=== PATIENT | female | born 1985 | race Asian ===

== ENCOUNTER → 2016-04-17 | Outpatient (CLI) | payer BC ==
[~2016-04-17] MED LIST: PRENTAB26 PO
== END | disposition home or self-care (01) ==
LOC: C.LABSPEC 16:16
PROVIDERS: ATTEND Obstetrics & Gynecology
DX: Z34.03 Encounter for supervision of normal first pregnancy, third trimester (principal)

== ENCOUNTER 2016-05-20 19:55 | Inpatient (IN) | payer BC ==
[~2016-05-20] VITALS: Ht 162.6 cm; Wt 69.0 kg
[2016-05-20 21:34] VITALS: BMI 23.4
[2016-05-20] MEDS ORDERED: PRENTAB26 PO (21:37)
[2016-05-20] MEDS ORDERED: LACTATED RINGER'S 1000ML 1,000 ML IV PRN (23:29)
[2016-05-20] MEDS ORDERED: FENTANYL 2MCG/ML ROPIV 1.25MG/ML 100ML BAG EPI ONE (23:41)
[2016-05-20] MEDS ORDERED: BUPIVACAINE 0.25% 30 ML VIAL ONE (23:41)
[2016-05-20] MEDS ORDERED: EpHEDrine SULFATE INJ 50 MG/ML AMP ONE (23:41)
[2016-05-20] MEDS ORDERED: FENTANYL CITRATE INJ 50 MCG/1 ML 2 ML VIAL ONE (23:42)
[2016-05-20 23:52] LABS: HEMATOCRIT 36.5 % (37-47); MEAN CELL VOLUME 93.1 fL (80-100); MEAN CORPUSCULAR HEMOGLOBIN 32.7 pg (25-34); MEAN CORPUSCULAR HGB CONC 35.1 g/dl (32-36); MEAN PLATELET VOLUME 9.1 fL (7.4-10.4); PLATELET COUNT 165 K/uL (130-400); RED BLOOD COUNT 3.92 M/uL (4.2-5.4); WHITE BLOOD COUNT 8.63 K/uL (4.8-10.8)
[2016-05-21] MEDS ORDERED: LACTATED RINGER'S 1000ML 500 ML IV PRN ×2 (00:56→10:22)
[2016-05-21] MEDS ORDERED: NALOXONE HCL INJ 1 MG in SODIUM CHLORIDE 0.9% 1000ML 1,000 ML IV PRN (00:56)
[2016-05-21] MEDS ORDERED: ONDANSETRON INJ 2 MG/ML 2 ML VIAL IV PRN (01:00)
[2016-05-21] MEDS ORDERED: EpHEDrine SULFATE INJ 50 MG/ML AMP IV PRN (01:00)
[2016-05-21] MEDS ORDERED: DiphenhydrAMINE HCL 50 MG/ML VIAL IV PRN (01:00)
[2016-05-21] MEDS ORDERED: NALBUPHINE HCL INJ 10 MG/ML AMP IV PRN (01:00)
[2016-05-21] MEDS ORDERED: NALOXONE HCL INJ 0.4 MG/1 ML VIAL/CARP IV PRN (01:00)
[2016-05-21 02:53] VITALS: Ht 162.6 cm; Wt 69.0 kg
[2016-05-21] MEDS: LACTATED RINGER'S 1000ML 1,000 ML IV SCH ×2 (05:01→10:28)
[2016-05-21] MEDS: FENTANYL 2MCG/ML ROPIV 1.25MG/ML 100ML BAG EPI PRN ×2 (07:09→08:44)
[2016-05-21] MEDS ORDERED: OXYTOCIN 30 UNITS/500ML NSS IV ONE (07:41)
[2016-05-21] MEDS ORDERED: OXYTOCIN 30 UNITS/500ML NSS IV PRN ×2 (10:30→13:45)
[2016-05-21] MEDS ORDERED: SUPERCREAM 0.870 % 15GM JAR EXT PRN (13:45)
[2016-05-21] MEDS ORDERED: ACETAMINOPHEN/CODEINE 300/30MG TAB PO PRN ×2 (13:45)
[2016-05-21] MEDS ORDERED: ACETAMINOPHEN 325 MG TAB PO PRN (13:45)
[2016-05-21] MEDS ORDERED: BENZOCAINE 20% AER SPR 82.5 GM CAN EXT PRN (13:45)
[2016-05-21] MEDS ORDERED: LANOLIN OINT EXT PRN ×2 (13:45)
--- NOTE | 2016-05-21 14:41 | DELIVERY SUMMARY ---
DATE OF OPERATION: 05/21/2016 DATE OF DELIVERY: 05/21/2016. The patient is a 30-year-old G1,P0 female EDC of 05/15/2016 who presented in spontaneous labor. She was 4 cm dilated on arrival with bulging membranes. She received epidural analgesia which worked effectively. Membranes were ruptured for thin meconium stained fluid. She progressed to full dilation without Pitocin augmentation and began to push. There were several episodes of deep variables which responded to fluids and position change. After pushing for 1-1/2 hours it was evident that the patient was getting exhausted. The vertex was at +2 to +3 station. After discussion the procedure with the patient and her she was agreeable to a vacuum assisted delivery. The vacuum was placed on the vertex and through 3 contractions and no pop-offs the infant was brought to [facility]. A medial lateral episiotomy was done and the rest of the infant delivered gently. Mouth and nasopharynx were suctioned on the perineum. A loose nuchal cord was reduced. The rest of the delivered without difficulty and was placed on mother's abdomen for further attention and stimulation. There was crying and the was moving all 4 limbs. The cord was clamped and cut. The placenta was expressed intact with a 3-vessel cord. A left sulcal tear was repaired with 3-0 chromic in the usual fashion. The medial lateral episiotomy was also repaired with 3-0 chromic in the usual fashion. Estimated blood loss was 250 mL. Mother and infant were doing well after delivery. I attest to the content of the Intraoperative Record and any orders documented therein. Any exceptio ns are noted below.
--- NOTE | 2016-05-21 16:00 | Anesthesia Procedure Note ---
Anesthesia Epidural Removal Nt Date & Time May 21, 2016 at 16:00 Vital Signs Pain Intensity: 0.0 Notes Mental Status: alert / awake / arousable, participated in evaluation Nausea / Vomiting: adequately controlled Pain: adequately controlled Airway Patency, RR, SpO2: stable & adequate BP & HR: stable & adequate Hydration State: stable & adequate Neuraxial Anesthesia: was administered Anesthetic Complications: no major complications apparent, pt satisfied with anesthetic care Epidural: removed without complications, with tip intact
[2016-05-21 17:20] VITALS: BP 107/55; PULSE 70; TEMP 36.7
[2016-05-21] MEDS: IBUPROFEN 600 MG TAB PO PRN (19:34)
[2016-05-21] MEDS: DOCUSATE SODIUM 100 MG CAP PO SCH (19:34)
[2016-05-21 20:00] VITALS: BP 89/60; PULSE 110; TEMP 36.9
[2016-05-22 00:15] VITALS: BP 90/60; PULSE 70; TEMP 36.7
[2016-05-22 04:00] VITALS: BP 92/69; PULSE 74; TEMP 36.6
--- NOTE | 2016-05-22 06:59 | Progress Note ---
Subjective May 22, 2016. Subjective conversation w/ patient, physical exam Ambulation: ambulating normally Voiding: no voiding problems Passing Gas: Yes Diet Tolerance: Regular Diet Lochia: Small Feeding Type: Breast Feeding Review of Systems Constitutional: No chills, No fever Respiratory: No cough, No shortness of breath Cardiac: No chest pain, No palpitations Objective Vital Signs Date Time Temp Pulse Resp B/P Pulse Ox O2 Delivery O2 Flow Rate FiO2 05/22/16 04:00 36.6 74 18 92/69 Room Air 05/22/16 00:15 36.7 70 16 90/60 Room Air 05/22/16 00:15 Room Air 05/21/16 20:00 36.9 110 20 89/60 Room Air 05/21/16 17:20 36.7 70 20 107/55 Room Air 05/21/16 17:20 Room Air Physical Exam General Appearance: WELL-APPEARING, NO APPARENT DISTRESS Respiratory/Chest: lungs clear, no respiratory distress Cardiovascular: regular rate, rhythm, no murmur Abdomen: non tender, soft Fundus: Firm, Non-Tender, Relation to Umbilicus (2 cm below) Extremities: non-tender, no calf tenderness Laboratory Results Last 24 Hours Test 05/22/16 04:44 Assessment and Plan Post- Day#: 1 Continue Routine Care: Resident Physician Supervision Note: I interviewed and examined the patient. Discussed with Dr. Nelson and agree with findings and plan as documented in the note. Any exceptions or clarifications are listed here: [None] Documented By: Cat Michel s/p Day 1 - vital signs reviewed and wnl - HGB 12.8 (two days ago) - Blood: O+, GBS-, Rubella immune - Encourage ambulation, encourage breast feeding, and monitor lochia - Patient doing well clinically - CONTINUE ROUTINE POST CARE
[2016-05-22] MEDS: IBUPROFEN 600 MG TAB PO PRN ×5 (07:09→23:45)
[2016-05-22 07:33] VITALS: BP 97/61; PULSE 76; TEMP 36.3; O2SAT 97
[2016-05-22 08:02] LABS: HEMATOCRIT 30.6 % (37-47)
[2016-05-22] MEDS: PRENATAL VITAMIN TAB PO SCH (08:28)
[2016-05-22] MEDS: DOCUSATE SODIUM 100 MG CAP PO SCH ×2 (08:28→19:26)
[2016-05-22 11:36] VITALS: BP 93/57; PULSE 80; TEMP 36.6; O2SAT 97
[2016-05-22 16:35] VITALS: BP 96/52; PULSE 65; TEMP 36.8
[2016-05-22] MEDS ORDERED: BISACODYL 5 MG TABEC PO SCH (20:00)
--- NOTE | 2016-05-22 20:31 | Discharge Instructions ---
Discharge Instructions Date of Service May 22, 2016. Admission Reason for Admission: Check Labor Discharge Discharge Diagnosis / Problem: Spontaneous Vaginal Delivery Discharge Goals Goal(s): Routine recovery after delivery Medications Continue Dispensed Medications: supercream, dermaplast, tucks, lansinoh Activity Recommendations Activity Limitations: per Instructions/Follow-up section . Instructions / Follow-Up Instructions / Follow-Up ACTIVITY RECOMMENDATIONS: * Gradual return to full activity over the next 2-3 weeks. * No lifting - nothing heavier than baby over the next 2-3 weeks. * Do not engage in vigorous exercise, sexual activity or sports until cleared by your physician. * Do not drive or operate any motorized equipment until cleared by your physician. * You may shower/bathe daily. MEDICATIONS: For discomfort or pain, you may use Acetaminophen (Tylenol), Ibuprofen (Advil), or Naproxen (Aleve) following the package directions. For constipation you may use Colace following the package directions. BREAST CARE: If you are not breast feeding: * Wear a supportive bra 24 hours a day for one to two weeks. * Avoid stimulating your breasts and nipples as much as possible during the first few weeks after delivery. * When taking a shower, have the warm water hit your back, not breasts. * When your breasts feel full, apply ice packs. Usually three to four times a day helps ease the discomfort. * Take a mild pain medication (Tylenol / Motrin) when you are uncomfortable. If breast feeding: * Use breast milk to lubricate nipples. Lansinoh cream may be used for sore nipples. You do not need to remove cream prior to breast feeding. If using a different brand of cream, check the label for directions regarding removal of cream prior to nursing. * Wear a supportive bra. * If having problems with breasts or breast feeding, call a sharepoint consultant or your health care provider. EPISIOTOMY CARE: After delivery, if you have an episiotomy (stitches), the following steps will ease discomfort and aid healing. * For the first 24 hours after delivery, place ice packs next to your episiotomy to help reduce swelling. * After the first 24 hour-period, sitz baths, either portable or in the tub, are suggested. A shower with a shower arm sprayed over the episiotomy may be comforting. * No care should be done after each voiding and bowel movement. Squirt warm water from a plastic bottle over the perineum (region of the body between the anus and urinary opening) and pat dry. * Use Dermoplast to ease discomfort. Shake container. Perry directly over the episiotomy. Place a Tucks on a clean sanitary pad next to your episiotomy. SPECIAL CARE INSTRUCTIONS: When you are discharged from the hospital, it is important for you to follow the instructions listed below: * During the first week at home, you should be able to care for yourself and your baby. In addition, the usual light household activities are encouraged. * Limit your activities to the way you feel. Do not try to clean the house or move furniture. Be sensible. * If you actively engage in sports and have done so up until the time of your delivery, you may resume these activities as soon as you feel able. This may take up to one month or even longer. Use good judgment. * Continue to take your vitamins for at least six weeks after the of your baby. * Your diet need not be limited unless you were on a special diet before your delivery. Breast-feeding mothers need around 2500 calories per day and at least 64-80 ounces of fluid per day (8 to 10 glasses). * You should eat foods from the four major food groups. Crash diets or fad diets are to be avoided. Eating lean meats, fresh fruits and vegetables, low-fat dairy products, high fiber foods and a regular exercise program, will help you get back to your pre- weight without putting your health at risk. * Constipation is sometimes a problem after delivery. Take a mild laxative as needed. If breast feeding, Milk of Magnesia is acceptable to use. You may use a suppository or Fleets enema if no episiotomy. * A daily shower or tub bath is suggested. Be sure to thoroughly and gently dry the perineum. * A bloody vaginal discharge will usually continue until around four weeks post . A small amount of bleeding may continue for as long as six weeks. Vaginal discharge changes from the bright red bleeding after delivery to pink then brownish and finally yellowish-pink before becoming white and disappearing. * Bleeding may increase with activity. Your first period may come in 4-8 weeks. If you are breast feeding, your period may be delayed even longer. * [place] (sex) can begin whenever both you and your partner feel comfortable and do not have any form of genital infection. It is recommended that you wait at least six weeks for internal and external healing to occur. If you have questions, please talk to your health care practitioner. A condom should be used to prevent infection and . * Foreplay, gentle intercourse and lubrication is very important the first several times to prevent pain. A water-based lubricant such as K-Y jelly or Astroglide may be used. * If you have RH negative blood and your baby is RH positive, you will receive RHOGAM by injection prior to discharge. The nurse will give you a card to keep with you that has the date and place that you received RHOGAM after delivery. * During your care, you had a Rubella screen done to check for the presence of rubella antibodies in your blood. If your test was negative, you will receive a Rubella vaccine prior to discharge. This vaccine may cause a fever, soreness at the injection site and flu-like symptoms. If these symptoms persist, notify your health care practitioner. is not advised for one month after a Rubella vaccine. * Verbalizes understanding of car seat law as reviewed with patient nursing. * Car Seat hand-out given and reviewed with patient by nursing. * Shaken baby information reviewed with patient by nursing. Call you doctor if: * Heavy bleeding (saturating several pads an hour) or passing clots the size of your fist. * A fever >101 degrees F (38.3 degrees C) on two occasions four hours apart and /or chills. * Unusual pain in the pelvic or vaginal areas. * "Baby Blues" lasting longer than two weeks. If you have any questions or concerns, call your health care practitioner at . FOLLOW UP VISIT: * Please call the office at to schedule a 6 week examination. It is important you keep this appointment. It is important for you to make arrangements for either yearly or twice yearly check-ups thereafter. Current Hospital Diet Patient's current hospital diet: Regular OB Diet Discharge Diet Recommended Diet: Regular Diet Pending Studies Studies pending at discharge: no Medical Emergencies . Who to Call and When: Medical Emergencies: If at any time you feel your situation is an emergency, please call 911 immediately. . Non-Emergent Contact Non-Emergency issues call your: Primary Care Provider, Senior Marketing Engineer . . "Provider Documentation" section prepared by Kris Nelson. VTE Core Measure Inpt VTE Proph given/why not?: Treatment not indicated
[2016-05-22 23:45] VITALS: BP 95/56; PULSE 64; TEMP 36.6; O2SAT 96
[2016-05-23] MEDS: IBUPROFEN 600 MG TAB PO PRN ×2 (05:11→13:19)
--- NOTE | 2016-05-23 07:04 | Progress Note ---
Subjective May 23, 2016. Subjective conversation w/ patient, physical exam Ambulation: ambulating normally Voiding: no voiding problems Passing Gas: Yes Diet Tolerance: Regular Diet Lochia: Small Feeding Type: Breast Feeding Review of Systems Constitutional: No chills, No fever Respiratory: No cough, No shortness of breath Cardiac: No chest pain, No palpitations Objective Vital Signs Date Time Temp Pulse Resp B/P Pulse Ox O2 Delivery O2 Flow Rate FiO2 05/22/16 23:45 36.6 64 16 95/56 96 Room Air 05/22/16 23:45 96 Room Air 05/22/16 16:35 Room Air 05/22/16 16:35 36.8 65 18 96/52 Room Air 05/22/16 11:36 36.6 80 16 93/57 97 Room Air 05/22/16 07:33 36.3 76 16 97/61 97 Room Air 05/22/16 07:30 Room Air Physical Exam General Appearance: WELL-APPEARING, NO APPARENT DISTRESS Respiratory/Chest: lungs clear, no respiratory distress Cardiovascular: regular rate, rhythm, no murmur Abdomen: non tender, soft Fundus: Firm, Non-Tender, Relation to Umbilicus (2 cm below umbilicus) Extremities: non-tender, no calf tenderness Laboratory Results Last 24 Hours Test 05/22/16 07:53 Hemoglobin 10.5 g/dL Hematocrit 30.6 % Assessment and Plan Post- Day#: 2 Continue Routine Care: s/p Day 2 - vital signs reviewed and wnl - HGB 10.5 yesterday - Blood: O+, GBS-, Rubella immune - Encourage ambulation, encourage breast feeding, and monitor lochia - Patient doing well clinically - Reviewed discharge instructions with patient - PATIENT TO BE DISCHARGED TODAY Resident Physician Supervision Note: I interviewed and examined the patient. Discussed with Dr. Nelson and agree with findings and plan as documented in the note. Any exceptions or clarifications are listed here: [None Documented By: Israel Moore
[2016-05-23 08:02] VITALS: BP 97/60; PULSE 62; TEMP 36.6
[2016-05-23] MEDS: DOCUSATE SODIUM 100 MG CAP PO SCH (08:35)
[2016-05-23] MEDS: PRENATAL VITAMIN TAB PO SCH (08:35)
--- NOTE | 2016-05-23 11:14 | DISCHARGE SUMMARY ---
DATE OF DISCHARGE: 05/23/2016. DATE OF DELIVERY: 05/21/2016. HISTORY OF PRESENT ILLNESS: The patient is a 30-year-old G1, P0, female, EDC of 05/15/2016 who presented in spontaneous labor. She progressed to full dilation and pushed until she was experiencing significant fatigue and was no longer pushing effectively. The vertex was +2 +3 station. After consultation and discussion with the patient and her , a vacuum was applied to the vertex and the was delivered over 3 contractions to . She then pushed the out without difficulty. She did well . Lochia was normal. She was eating regular diet shortly after her delivery. She remained afebrile throughout her hospital course. Hemoglobin was 12.8 on admission, hematocrit 36.5. First day hemoglobin 10.5, hematocrit 30.6. She is being sent home in good condition with written instructions and verbal instructions to be seen in the office in 6 weeks.
[2016-05-23 15:30] VITALS: BP 97/66; PULSE 76; TEMP 36.8
[2016-05-23 19:00] VITALS: BP_DIAS 66; PULSE 76; TEMP 36.8
== END 2016-05-23 19:25 | disposition home or self-care (01) | DRG 775 ==
LOC: C.LD 19:55 → C.OPB 19:55 → C.LD 22:31 → C.OPB 23:31 → C.OBG 05-21 17:43
PROVIDERS: ADMIT Obstetrics & Gynecology; ATTEND Obstetrics & Gynecology
PROC: 0W8NXZZ Division of Female Perineum, External Approach (ICD-10-PCS; principal; 2016-05-21)
PROC: 10D07Z6 Extraction of Products of Conception, Vacuum, Via Natural or Artificial Opening (ICD-10-PCS; principal; 2016-05-21)
PROC: 0UQMXZZ Repair Vulva, External Approach (ICD-10-PCS; principal; 2016-05-21)
DX: O48.0 Post-term pregnancy (principal); O75.81 Maternal exhaustion complicating labor and delivery; O66.5 Attempted application of vacuum extractor and forceps; O77.0 Labor and delivery complicated by meconium in amniotic fluid; O76 Abnormality in fetal heart rate and rhythm complicating labor and delivery; O69.81X0 Labor and delivery complicated by cord around neck, without compression, not applicable or unspecified; O71.89 Other specified obstetric trauma; Z37.0 Single live birth; Z3A.40 40 weeks gestation of pregnancy